=== PATIENT | male | born 1980 | race Caucasian/White ===

== ENCOUNTER 2022-04-18 15:07 | Emergency (ER) | payer MEDICAID, OTHER ==
[~2022-04-18] VITALS: Ht 175.3 cm; Wt 72.6 kg
[2022-04-18] MEDS ORDERED: ABILIFY (15:59)
[2022-04-18] MEDS ORDERED: LISINOPRIL (15:59)
[2022-04-18] MEDS ORDERED: LOTREL (15:59)
[2022-04-18] MEDS ORDERED: AMLODIPINE (15:59)
[2022-04-18] MEDS ORDERED: LITHIUM (15:59)
[2022-04-18] MEDS ORDERED: TETRACAINE HCL 0.5% OPHT DROP 2 ML BOTTLE ONE ×2 (17:23→23:00)
[2022-04-18] MEDS ORDERED: FLUORESCEIN SODIUM 1 MG STRIP ONE ×2 (17:23→18:54)
[2022-04-18] MEDS ORDERED: FLUORESCEIN SODIUM 1 MG STRIP OP ONE (17:30)
[2022-04-18] MEDS ORDERED: TETRACAINE HCL 0.5% OPHT DROP 2 ML BOTTLE OP ONE (17:30)
[2022-04-18] MEDS ORDERED: MOXI3DRO EACHEYE (19:51)
--- NOTE | 2022-04-18 22:00 | NUR ---
Patient discharged to home in stable condition. Written and verbal after care instructions given. Patient verbalizes understanding of instructions. Stressed follow up or return to ER for worsening s/s.
--- NOTE | 2022-04-18 23:00 | NUR ---
Verbal order received from Dr. Gómez for Tetracaine eye drops.
--- NOTE | 2022-04-18 23:03 | NUR ---
Pt still c/o of eye pain and lack of vision, insurance being checked to determine transfer for [facility]
--- NOTE | 2022-04-18 23:17 | NUR ---
pt now states that his eyes are better after the tetracaine drops and that he wants to be discharged to go home. He states that if the blurry vision comes back he will return to the ER.
[2022-04-18 23:29] VITALS: BP 128/77
== END 2022-04-18 23:29 | disposition home or self-care (01) ==
LOC: ER 15:07
DX: H18.823 Corneal disorder due to contact lens, bilateral (principal); R26.2 Difficulty in walking, not elsewhere classified; H10.9 Unspecified conjunctivitis
CPT/HCPCS: A4663